=== PATIENT | male | born 1950 | race African-American/Black ===

== ENCOUNTER 2020-02-24 11:31 | Emergency (ER) | payer OTHER ==
[~2020-02-24] VITALS: Ht 185.4 cm; Wt 66.7 kg
[2020-02-24 12:19] LABS: URINE BLOOD TRACE (Negative); URINE CLARITY CLEAR; URINE COLOR YELLOW; URINE GLUCOSE-RANDOM* NEGATIVE (Negative); URINE KETONES TRACE (Negative); URINE LEUKOCYTES-REFLEX NEGATIVE (Negative); URINE NITRITE-REFLEX NEGATIVE (Negative); URINE PROTEIN (DIPSTICK) TRACE (Negative); URINE SPECIFIC GRAVITY 1.025 (1.005-1.035)
[2020-02-24 12:21] LABS: ICTOTEST (BILI CONFIRMATORY) Negative (Negative); URINE BILIRUBIN NEGATIVE (Negative)
[2020-02-24 13:06] LABS: HEMATOCRIT 38.3 % (42.0-52.0); HEMOGLOBIN 13.1 gm/dL (14.0-18.0); MCHC 34.2 g/dL (28.0-37.0); MCV 96.3 fL (80.0-100.0); PLATELET COUNT 172 thou/uL (150-400); RBC 3.97 mil/uL (4.50-6.00); RDW 17.2 % (10.5-14.5); WBC 2.4 thou/uL (4.0-11.0)
[2020-02-24 13:13] LABS: CALCIUM 9.3 mg/dL (8.5-10.1); CREATININE 1.5 mg/dL (0.7-1.3); POTASSIUM 3.2 mmol/L (3.5-5.1)
[2020-02-24 13:19] LABS: ALBUMIN 4.3 g/dL (3.4-5.0); TOTAL BILIRUBIN 1.5 mg/dL (0.2-1.0); TOTAL PROTEIN 8.4 g/dL (6.4-8.2)
[2020-02-24 13:31] LABS: ABSOLUTE NEUTROPHILS 1.7 thou/uL (1.4-8.2)
[2020-02-24 13:32] LABS: ANISOCYTOSIS 1+
[2020-02-24] MEDS ORDERED: NAPROSYN500 MG PO (14:26)
[2020-02-24] MEDS ORDERED: NORFLEX100 MG PO (14:26)
[2020-02-24 14:46] VITALS: BP 127/71
== END 2020-02-24 14:46 | disposition home or self-care (01) ==
LOC: ER 11:31
PROVIDERS: Emergency Medicine; Physician Assistant
DX: S39.012A Strain of muscle, fascia and tendon of lower back, initial encounter (principal); I10 Essential (primary) hypertension; J44.9 Chronic obstructive pulmonary disease, unspecified; G43.909 Migraine, unspecified, not intractable, without status migrainosus; X58.XXXA Exposure to other specified factors, initial encounter; Y93.89 Activity, other specified; Y92.89 Other specified places as the place of occurrence of the external cause; Y99.8 Other external cause status